=== PATIENT | male | born 1965 | race Caucasian/White ===

== ENCOUNTER 2017-02-20 11:33 | Emergency (ER) | payer OTHER ==
[~2017-02-20] VITALS: Ht 177.8 cm; Wt 71.8 kg
[2017-02-20 11:42] VITALS: BP 156/106; PULSE 113; RESP 16; O2SAT 98
--- NOTE | 2017-02-20 12:39 | DRSVH ---
PROCEDURE: X-RAY PELVIS W/LAT HIP (RT) ([id number]) INDICATIONS: pain in Right hip TECHNIQUE: AP pelvis with lateral view(s) of the right hip(s). COMPARISON: None. FINDINGS: Bones: No fractures or dislocations. Pelvic ring appears intact. No suspicious bony lesions. Soft tissues: The visualized bowel gas pattern is normal. No suspicious soft tissue calcifications. IMPRESSION: No fracture or dislocation. Dictated by: Beryl Gray M.D. on 02/20/2017 at 12:36 Approved by: Beryl Gray M.D. on 02/20/2017 at 12:36
--- NOTE | 2017-02-20 13:10 | ED.REPORT ---
HPI-Extremity Problem Lower Date of Service Feb 20, 2017 ED Provider: Pako Byers PA-C Andrea is a 51-year-old male presenting with chief complaint of right hip pain. Reports insidious onset right hip pain developing over the last 2 days. Pain is aggravated by range of motion, and is relieved by holding still. Denies trauma, fever, chills, low back pain, saddle anesthesia, bowel/bladder dysfunction, history of arthroplasty, diabetes, HIV, immunosuppression, IV drug use. Nursing Notes Stated Complaint: HIP PAIN Chief Complaint: Extremity Trauma Nursing Notes Reviewed: Yes Allergies: Coded Allergies: No Known Allergies (Unverified , 02/20/17) General Time Seen by MD: 13:08 Chief Complaint Hip injury right Past Medical History Past Medical History Denies Social History Alcohol Use: In recovery Drug Use: Denies drug use Review of Systems Review of Systems Note: Negative unless stated otherwise in history of present illness Physical Exam General: Well appearing, well developed, well nourished, no acute distress. Moderately anxious appearing. Head: Atraumatic, normocephalic. Eyes: No scleral icterus or injection. No discharge. Vision grossly intact. ENT: Voice clear, hearing grossly intact. Respiratory: Regular rate and rhythm. Breath sounds present, clear to auscultation and equal bilaterally. No respiratory distress. No increased work of breathing, speaks in complete sentences. Cardiovascular: Tachycardic with regular rhythm, without murmur, gallop or rub. No pedal edema. Skin: Warm and dry. Back: Normal to inspection, nontender. Right hip: Normal to inspection without redness, swelling, bruising. Nontender , full range of motion. Right knee: Normal to inspection, nontender, full range of motion Neurological: Grossly nonfocal. Psychological: Alert and oriented. Speech appropriate, linear and logical. Behavior appropriate. Initial Vital Signs Vital Signs (First) Date Time Temp Pulse Resp B/P Pulse Ox O2 Delivery O2 Flow Rate FiO2 02/20/17 11:42 36.5 113 16 156/106 98 Room Air Initial VS: Vital signs abnormal (tachycardia, elevated blood pressure) Interpretation & Diagnostics X-Ray Interpretation Xray Interpretation: PROCEDURE: X-RAY PELVIS W/LAT HIP (RT) ([id number]) INDICATIONS: pain in Right hip IMPRESSION: No fracture or dislocation. Interpretation / Wet Read by: Interpret - Radiologist, Interp - [facility] Re-Eval/Medical Decision Med Decision/Clinical Course I discussed this case with 51-year-old male presents with insidious onset right hip pain that began about 2 days ago. Aggravated by range of motion. Relieved by remaining still. Denies trauma or risk factors for infection. Denies red flag symptoms for cauda equina. Physical examination is benign, the hip normal to inspection and nontender. Circulation sensation and strength intact distal to the affected area. X-ray reveals no fracture. Tachycardia is noted both in triage and in the exam. The patient states that he typically has a fairly high heart rate and that being in the hospital makes him nervous. He is afebrile I have no reason to believe he is septic. I am reassured there is unlikely to be an infection or fracture in the hip. This is likely caused by his back. Patient states he has a history of upper back problems but not lower back problems. Patient declines pain medication. Provide primary care referral, advised [id number] analgesia and provided once return precautions. Patient verbalizes understanding and consented to the plan. Discharge & Departure Impression: Primary Impression: Hip pain, right Additional Impression: Elevated blood pressure reading Disposition: Home Discharge Condition All VS Reviewed: Yes Condition: Stable Additional Instructions: Evaluation for right hip pain in the emergency department. X-rays reveal no fracture, and history and physical is reassuring that you are unlikely to have an infection in your hip. A number of things could be causing this pain, the most likely being issues in your back. I believe we have ruled out immediately dangerous causes of your pain, and that you are stable and safe to be discharged home. Pains was treated with 500 mg of naproxen (Aleve) twice a day. You can add 1000 mg of acetaminophen (Tylenol) up to every 6 hours for more severe pain. I will provide a referral for primary care follow-up. Please contact them to arrange follow-up in the next week or so. Return to emergency from for new or worsening symptoms including increasing pain , and inability to walk on the affected limb, fever, numbness between the your legs or loss of bowel/bladder control. I also note that your blood pressure was elevated during your visit to the emergency department. Please discuss this with your primary care provider. Referrals: [facility] EDSupervising Provider for APC: Kathryn James MD copies to: [facility] Pako Byers PA-C Feb 20, 2017 13:10
[2017-02-20 13:55] VITALS: BP 172/116
[2017-02-20 13:56] VITALS: BP 176/123
[2017-02-20] MEDS ORDERED: CLON0.2T PO (13:57)
== END 2017-02-20 13:55 | disposition home or self-care (01) ==
LOC: SED 11:33
DX: M25.551 Pain in right hip (principal); R03.0 Elevated blood-pressure reading, without diagnosis of hypertension; E11.9 Type 2 diabetes mellitus without complications